=== PATIENT | female | born 1980 | race Caucasian/White ===

== ENCOUNTER 2019-07-19 15:00 | Outpatient (CLI) | payer BC, SELFPAY ==
--- NOTE | ~2019-07-19 | MM_ITS ---
EXAMINATION: MM screening jean-pierre BI w lauro HISTORY: Screening mammogram TECHNIQUE: Craniocaudal and mediolateral oblique 3-D tomosynthesis images were obtained and synthetic 2-D images were generated. CAD analysis was submitted and interpreted. COMPARISON: No prior mammogram is available for comparison at this institution. BREAST PARENCHYMAL COMPOSITION: There are scattered areas of fibroglandular density. FINDINGS: There is no evidence of suspicious mass, calcification, or architectural distortion to sugg est malignancy in either breast. There has been no suspicious interval change. IMPRESSION: 1. No mammographic evidence of malignancy. 2. Recommend routine screening mammography in one year. BI-RADS Category 1: Negative Reviewed, dictated and finalized at location A. IC PROFESSOR
== END 2019-07-19 15:01 | disposition home or self-care (01) ==
PROVIDERS: Visit Provider Surgery Plastic and Reconstructive Surgery
DX: Z12.31 Encounter for screening mammogram for malignant neoplasm of breast (principal)
CPT/HCPCS: 77063; 77067

== ENCOUNTER 2019-08-03 09:23 | Outpatient (CLI) | payer SELFPAY ==
--- NOTE | 2019-08-03 09:25 | ECG_ITS ---
Measurements Intervals [place] Rate: 60 P: 22 MA: 136 QRS: 8 QRSD: 88 T: 14 QT: 422 QTc: 422 Interpretive Statements SINUS RHYTHM NORMAL ECG Electronically Signed On 08-03-2019 10:02:44 CONSTRUCTION SKILLS TEACHER by Demarco Munoz D.O.
[2019-08-03 10:47] LABS: Hematocrit 33.7 % (37.0-47.0); Hemoglobin 10.6 g/dL (12.0-15.0)
== END 2019-08-03 09:24 | disposition home or self-care (01) ==
LOC: ANHSURGERY 09:25
PROVIDERS: Anesthesiology; Visit Provider Surgery Plastic and Reconstructive Surgery
DX: L57.4 Cutis laxa senilis (principal)
CPT/HCPCS: 36415; 85014; 85018; 93005

== ENCOUNTER 2019-08-09 01:49 | Day surgery (SDC) | payer OTHER, SELFPAY ==
[2019-07-27 10:07] VITALS: BMI 23.5
--- NOTE | 2019-08-08 11:44 | P.PNAN_ITS ---
Anes - Initial Pre Proc Eval Procedure: Operation Date: 08/09/19 10:30 Proposed Procedures p Bilateral Augmentation Mammoplasty, Bilateral Mastopexy With Galaflex - Boyd Ascencio MD s Abdominoplasty - Boyd Ascencio MD Date/Time: 08/08/19 11:44 Surgeon: Boyd Ascencio MD Pre Op Diagnosis: Skin Laxity Patient Data Age: 39 Gender: F Height: 5 ft 7 in Weight: 68.04 kg Allergies Allergy/AdvReac Type Severity Reaction Status Date / Time No Known Allergies Allergy Unverified 08/09/19 09:09 Home Medications Medication Instructions Recorded Confirmed Type carisoprodol 350 mg tablet 350 mg PO TID PRN #21 tablet 07/31/19 08/09/19 Rx docusate sodium 100 mg capsule 100 mg PO DAILY #14 cap 07/31/19 08/09/19 Rx ondansetron HCl 4 mg tablet 4 mg PO Q8H #28 tablet 07/31/19 08/09/19 Rx oxycodone-acetaminophen 5 mg-325 1 tablet PO Q6H PRN #15 tablet 07/31/19 08/09/19 Rx mg tablet Patient hx anesthesia problems: none Family hx anesthesia problems: none [facility] Past Medical History Medical History (Updated 08/08/19 @ 11:44 by Perico Waters MD) Healthy adult Social History Social History Smoking status: Former smoker Alcohol intake: current Anes - Eval Final PreProcedure Day of Procedure 08/08/19 11:44 Patient weight: normal Heart: regular rate and rhythm Lungs: clear to auscultation Airway: Mallampati scale class II Neurological: alert and oriented Last oral intake: >/= 8 hours ASA classification: II Emergent: no Anesthetic plan: proceed Anesthesia type and monitoring: general ETT and standard monitoring Informed Consent: The patient's anesthetic plan and its attendant risks and benefits were discussed with the patient/family/POA. Questions were solicited and answers provided to the satisfaction of the patient/family/POA.
[2019-08-09] VITALS (14 sets, daily range): BP systolic 114–133; BP diastolic 77–90; PULSE 52–95; RESP 12–18; TEMP 36.3–36.9; O2SAT 94–100
[2019-08-09] MEDS: LACTATED RINGERS 1,000 ML 30 ML IV CONT ×2 (09:00→16:44)
[2019-08-09 09:02] LABS: Urine Cotinine NEGATIVE
--- NOTE | 2019-08-09 11:06 | WPDHPUPDATE1 ---
History and Physical Update Update Date/Time: 08/09/19 11:06 History and Physical has been reviewed, including an updated exam of the patient. There are NO changes in the patient's condition. Risks, benefits, and alternatives have been discussed and questions answered. Patient agrees to proceed with procedure.
[2019-08-09] MEDS: ONDANSETRON INJ 4 MG/2 ML VIAL IV PUSH (11:30)
[2019-08-09] MEDS: SCOPOLAMINE 1.5 MG PATCH TRANSDERM (11:36)
[2019-08-09] MEDS: ceFAZolin 2 GM/D5W 50 ML 2 GM/50 ML BAG IVPB (11:44)
[2019-08-09] MEDS: LIDO 1%/EPINEPHRINE 1:100,000 20 ML VIAL 30 ML INFILTRATE (12:40)
--- NOTE | 2019-08-09 16:23 | SUR.OPER ---
Ebl=50ml
--- NOTE | 2019-08-09 16:30 | SUR.OPER ---
[id number]
--- NOTE | 2019-08-09 16:42 | PM.PROC ---
Procedure Note - Detailed Date of procedure: 08/09/19 Pre-op diagnosis: Skin Laxity Breast Ptosis Micromastia Post-op diagnosis: same Procedure performed: 1. Augmentation mastopexy with galaflex 2. Progressive tension abdominoplasty Description of procedure: She is here today for bilateral breast augmentation, mastopexy,galaflex, abdominoplasty. Previously and again today the risks, benefits, alternatives were discussed in extensive detail. I wanted her to be very realistic about the risks involved as well as expectations. We discussed aftercare and what to monitor for. Made sure answered all of her questions to her satisfaction today and consent was obtained. Marked in the preoperative holding area with their verification. The patient was taken to the operating room placed supine on the operating table. Anesthesia was provided by anesthesiology. A surgical time-out was taken. We cleansed the skin and 1% lidocaine and 0.25% Marcaine with epinephrine was used anesthetize as a field block. She was prepped and draped in a standard sterile fashion. Tegaderm nipple Real were placed. Incision was made vertically along the breast down to the level of the pectoralis major.. I incised the pectoralis major along its inferior border and completely released the inferior border leaving the medial border intact. I created a subpectoral pocket in the appropriate dimensions based on our preoperative planning for the implant. I then copiously irrigated with saline solution and verified a strict hemostasis. Next the use a triple antibiotic and Betadine containing solution to irrigate the pocket. I washed my gloves with the triple antibiotic and Betadine solution. We washed the implant immediately upon opening it with this solution and only opened it when we needed it. I used implant funnel and no-touch technique. The implant was introduced into the pocket using the funnel. Having verified positioning of the implant this was closed using 2-0 Vicryl. I tailor tacked the breast into place. Placed her in a sitting position. Marked out the nipple-areolar complex at 38 mm. This was based on preoperative planning, intraoperative observations as well as intraoperative measurements which were in full agreement. I placed the patient supine and I de-epithelialized a superior pedicle. I resected just the central keel portion. I elevated the flaps medial and lateral superficial to the implant leaving good tissue covering this implant. I then trimmed the galaflex and sutured into place with 2-0 Vicryl. I then reapproximated the flaps using 2-0 Vicryl along its inferior and vertical aspect. Closed the vertical as well as around the areola with 3-0 Monocryl. Close IMF with 3-0 strata fix. Then ran a running subcuticular 4-0 Monocryl. Prior to final closure I did place her in a sitting position to verify symmetry as well as appearance. I placed the patient in a flexed position to verify the upper and lower markings would reach. I then placed her supine. A thorough abdominal examination was completed. Stab incisions were made and used tumescent solution. A 10 blade was used to make the upper incision. I continued dissection down to the level of fascia. Elevated just what was necessary for repair of the diastasis and discontinuous undermining otherwise. I then again flexed the bed to verify the upper skin flap would reach the lower markings without tension. Once verified I placed her supine once again and a 10 blade used to make the lower incision. I elevated up to level the umbilicus and left the umbilicus intact on a well-vascularized stalk. The intervening tissue was removed. A 2 mm blunt cannula and Exparel which was mixed 20 cc in 100 cc for a total volume of 120 cc I injected deep to the fascia bilaterally as well as along the incision lines and laterally to the breast using a 22 gauge needle.. I plicated the diastasis recti using 0 PDO stratafix barbed suture.
--- NOTE | 2019-08-09 17:47 | SUR.PHASEI ---
1540 SPOKE WITH SPOUSE PER PHONE- UPDATE & ROOM # GIVEN.
--- NOTE | 2019-08-09 17:53 | PC.NURSE ---
Pt. transferred to second floor OB per bed. No c/o pain at this time. Alert and oriented x3.
[2019-08-09 18:06] LABS: Hepatitis B Surface Antigen Negative (Negative)
[2019-08-09] MEDS: LACTATED RINGERS 1,000 ML 125 ML IV CONT (18:07)
[2019-08-09 18:23] LABS: HIV 1/2 Ab P24 Ag Result Negative (Negative); Hepatitis C Virus Antibody Negative (Negative)
[2019-08-09] MEDS: carisoprodoL 350 MG TABLET PO (22:09)
[2019-08-09] MEDS: DOCUSATE SODIUM 100 MG CAPSULE PO (22:09)
[2019-08-09] MEDS: SIMETHICONE 80 MG TAB.CHEW (22:23)
[2019-08-10] MEDS: carisoprodoL 350 MG TABLET PO ×3 (03:56→15:03)
[2019-08-10] MEDS: SIMETHICONE 80 MG TAB.CHEW (03:56)
[2019-08-10 04:00] VITALS: BP 116/76; PULSE 61; RESP 16; TEMP 36.9
[2019-08-10 07:55] VITALS: BP 86/57; PULSE 73; RESP 16; TEMP 37.4; O2SAT 98
--- NOTE | 2019-08-10 07:59 | WPDPN ---
Progress Note: A&P Assessment and Plan (1) Skin laxity: Code(s): L57.4 - Cutis laxa senilis Status: Acute Assessment and Plan: She is doing very well. Will plan for discharge later today when: Ambulating Pain control Tolerating regular diet Today we had a more than 20 minutes conversation about the care afterwards. What monitor for. (2) Breast ptosis: Code(s): N64.81 - Ptosis of breast Status: Acute (3) Micromastia: Code(s): N64.82 - Hypoplasia of breast Status: Acute Review of Systems Review of Systems: All systems reviewed & are unremarkable except as noted in HPI and below Exam Const: General: no acute distress Eyes: General: appearance normal, both eyes and all related structures Resp: Effort & Inspection: normal respiratory effort Cardio: Rate: regular rate Skin: Other: Bilateral breasts are healing well. No signs of infection. No hematoma. No seroma. Nipple-areolar complex with good color and capillary refill. Abdomen is healing well. No signs of infection. No hematoma. No seroma. Good color and capillary refill. Extrem: Other: No calf tenderness. Negative Homans. Objective Data Vital Signs Vital Signs: Vital Signs - 24 hr 08/09/19 09:09 08/09/19 16:44 08/09/19 16:55 Temperature 36.9 C 36.3 C L Pulse Rate 73 95 58 L Respiratory Rate 18 12 12 Blood Pressure 133/90 117/86 128/87 Pulse Oximetry 100 100 100 08/09/19 17:10 08/09/19 17:25 08/09/19 17:40 Temperature Pulse Rate 55 L 55 L 55 L Respiratory Rate 12 16 16 Blood Pressure 128/87 122/85 124/82 Pulse Oximetry 100 96 94 08/09/19 17:55 08/09/19 18:15 08/09/19 18:30 Temperature 36.5 C Pulse Rate 62 52 L 58 L Respiratory Rate 18 Blood Pressure 115/82 122/80 120/86 Pulse Oximetry 97 08/09/19 19:00 08/09/19 19:30 08/09/19 20:00 Temperature Pulse Rate 62 60 63 Respiratory Rate Blood Pressure 118/78 118/79 116/77 Pulse Oximetry 08/09/19 21:00 08/09/19 23:30 08/10/19 04:00 Temperature 36.7 C 36.9 C Pulse Rate 69 67 61 Respiratory Rate 16 16 Blood Pressure 114/78 119/78 116/76 Pulse Oximetry Intake/Output Intake/Output: Intake & Output 08/07/19 08/08/19 08/09/19 08/10/19 23:59 23:59 23:59 23:59 Intake Total 300 1200 Output Total 50 400 Balance 250 800 Meds/Results Medications: Active Medications Generic Name Dose Route Start Last Admin Trade Name Freq PRN Reason Stop Dose Admin Carisoprodol 350 mg 08/09/19 18:00 08/10/19 03:56 Soma PO 350 mg Q6HR JEFFERY Administration Docusate Sodium 100 mg 08/09/19 21:00 08/09/19 22:09 Colace Capsule PO 100 mg Q12HR JEFFERY Administration Enoxaparin Sodium 40 mg 08/10/19 09:00 Lovenox SUB-Q DAILY JEFFERY Morphine Sulfate 2 mg 08/09/19 17:48 Morphine Sulfate Inj IV PUSH Q2H PRN Pain Ondansetron HCl 4 mg 08/09/19 17:48 Zofran Inj IV PUSH Q6H PRN Nausea Oxycodone/Acetaminophen 1 - 2 tablet 08/09/19 17:48 08/10/19 03:55 Percocet 5-325 Mg PO 2 tablet Q6H PRN Administration Pain Labs Labs: Laboratory Results - last 24 hr 08/09/19 08/09/19 08:47 17:17 Cotinine Negative Hep Bs Antigen Negative Hepatitis C Ab Screen Negative HIV 1&2 Ab/P24 Ag 4thGn Negative
--- NOTE | 2019-08-10 08:09 | PM.DS ---
DS: Diagnosis Admitting Diagnosis Admitting Diagnosis: Cutis laxa senilis Micromastia Breast Ptosis DS: Summary Time Spent with Patient Time attestation: Total time spent providing and/or coordinating discharge services: 20 minutes She was admitted after augmentation mastopexy and abdominoplasty. Overnight she has done very well. Will plan for discharge home later today. Exam Const: General: no acute distress Eyes: General: appearance normal, both eyes and all related structures Resp: Effort & Inspection: normal respiratory effort Cardio: Rate: regular rate Skin: Other: Bilateral breasts are healing well. No signs of infection. No hematoma. No seroma. Nipple-areolar complex with good color and capillary refill. Abdomen is healing well. No signs of infection. No hematoma. No seroma. Good color and capillary refill. Extrem: Other: No calf tenderness. Negative Homans. DS: Data Data Completed and Pending Labs on day of discharge: Labs from last 24 hours 08/09/19 08/09/19 17:17 08:47 Cotinine Negative Hep Bs Antigen Negative Hepatitis C Ab Screen Negative HIV 1&2 Ab/P24 Ag 4thGn Negative Discharge Plan Discharge Patient Disposition: Home, Self-Care Discharge Instructions: POST OPERATIVE DISCHARGE INSTRUCTIONS FOR: Breast Augmentation BOYD ASCENCIO M.D. [facility] [address] [place] [address] [address] for 24 hours after anesthesia and while you are taking pain medication. Take all prescribed medication as directed Diet as tolerated. Begin gentle shoulder rolls and arm stretches 10 times per hour. No lifting or activity that raises blood pressure for 48 hours. Regular walking / ambulation. Remove the Scopolamine patch that was placed behind your ear in 72 hours or less. Wash your hands after touching. Call with any questions or concerns. At this point my may shower. Do not take pain medication before showering as the combination of medication and heat may cause you to feel dizzy or pass out. Let soap and water run over your incisions. Do not scrub or directly wash your incision. Replace the surgical bra and wear it 23 hours per day. No pools / tubs/ soaking for more than 2 weeks Keep flexed at waist, slowly stand as tolerated. No lifting more than 20 pounds. Abdominal binder and surgical bra (or sports bra - no underwire) 23 hours per day. If you have any questions or concerns, please call the office . If it is after hours you will be directed to the propulsion motor and generator repairer exchange. Shortness of breath, chest pain, or other medical emergency dial 911 / proceed to the Emergency Room. Follow-up/Referrals: Boyd Ascencio MD [Physician] - 2 Weeks Discharge Medications: New ibuprofen 600 mg Tablet 600 mg PO Q6H 5 Days Qty: 20 RF: 0 Continued ondansetron HCl [Zofran] 4 mg tablet 4 mg PO Q8H Qty: 28 RF: 0 docusate sodium [Colace] 100 mg capsule 100 mg PO DAILY Qty: 14 RF: 0 carisoprodol [Soma] 350 mg tablet 350 mg PO TID PRN (Reason: muscle pain) Qty: 21 RF: 0 oxycodone-acetaminophen [Percocet] 5-325 mg tablet 1 tablet PO Q6H PRN (Reason: pain) Qty: 15 RF: 0 Quality VTE Prophylaxis VTE prophylaxis: mechanical ordered and pharmacologic ordered Discharge DVT prophylaxis was discussed with patient she would like proceed with ambulation as her method of choice after discharge.
--- NOTE | 2019-08-10 09:26 | WPDANESPN ---
Anes - Prog Note Post-Op Date/Time: 08/10/19 09:26 Cardiovascular status: normal Respiratory status: normal Airway patency: baseline Mental status: baseline Post-Op hydration status: normal Vital Signs: Last Vital Signs Temp 36.9 C 08/10/19 04:00 Pulse 61 08/10/19 04:00 Resp 16 08/10/19 04:00 BP 116/76 08/10/19 04:00 Pulse Ox 97 08/09/19 17:55 Pain Score (VAS): 0/10. Patient resting in bed at time of assessment, appears comfortable. I/O: Intake & Output 08/09/19 08/10/19 08/10/19 23:59 07:59 15:59 Intake Total 300 1200 Output Total 50 400 Balance 250 800 08/09/19 17:17 Hep Bs Antigen Negative Hepatitis C Ab Screen Negative HIV 1&2 Ab/P24 Ag 4thGn Negative Patient Feedback: Patient satisfied with anesthetic care.
[2019-08-10] MEDS: DOCUSATE SODIUM 100 MG CAPSULE PO (09:31)
[2019-08-10] MEDS: IBUPROFEN 600 MG TABLET PO ×2 (09:31→15:03)
[2019-08-10] MEDS: ENOXAPARIN 40 MG/0.4 ML SYRINGE SUB-Q (09:31)
== END 2019-08-10 15:25 | disposition home or self-care (01) ==
LOC: ANHSURGERY 11:37 → ANHOB2 17:54
PROVIDERS: Visit Provider Surgery Plastic and Reconstructive Surgery
PROC: (CPT 19325; principal; 2019-08-09 10:30)
PROC: (CPT 19325; 2019-08-09 10:30)
DX: Z41.1 Encounter for cosmetic surgery (principal); L57.4 Cutis laxa senilis; N64.81 Ptosis of breast; N64.82 Hypoplasia of breast; Z87.891 Personal history of nicotine dependence
CPT/HCPCS: 19325; 19316; 15777 ×2; 15830; 15847; 36415; 80307; 86703; 86803; 87340; 99199; A9270; C9290; G0432; J0131; J0171; J0690; J1100; J1170; J1580; J1650; J2250; J2405; J2704; J3010; J7120

== ENCOUNTER 2021-04-03 11:40 | Emergency (ER) | payer BC, SELFPAY ==
--- NOTE | ~2021-04-03 | XR_ITS ---
EXAMINATION: XR chest 2V EXAM DATE: 04/03/2021 12:07 INDICATION: LT Sided Cp/Axillary Chest/Lt Shoulder Pain X Yesterday . TECHNIQUE: Frontal and lateral projections of the chest obtained and reviewed. There is no prior nela dy for comparison. FINDINGS: The lungs are clear. There are no pleural effusions. The cardiomediastinal silhouette is within normal limits. There is no pneumothorax suspected. The bones and soft tissues are unremarkab le. IMPRESSION: No acute cardiopulmonary findings. Reviewed, dictated and finalized at location B.
--- NOTE | ~2021-04-03 | CT_ITS ---
EXAMINATION: CTA chest PE protocol DATE: 04/03/2021 15:26 CDT INDICATION: Left chest pain. Elevated d-dimer. TECHNIQUE: Computed tomographic angiography (CTA) of the chest was performed with 100 mL Omnipaque-35 0 intravenous contrast. The dose-length product was 285.39 mGy-cm. Maximum intensity projection 3D-re constructions of the aorta and other arteries were constructed by the technologist on a separate work station. Automated exposure control and iterative reconstruction technique were employed. COMPARISON: No prior studies for comparison. FINDINGS: Small left pleural effusion. Cardiomegaly. Study is technically adequate without evidence f or pulmonary embolism. No thoracic lymphadenopathy. There are breast implants. No endobronchial lesio ns. There is dependent atelectasis. No suspicious pulmonary nodules or masses. The upper abdomen is u nremarkable. No acute osseous abnormality. IMPRESSION: 1. No evidence for pulmonary embolism. 2: Small left pleural effusion with underlying dependent bibasilar atelectasis. 3: Cardiomegaly. Reviewed, dictated and finalized at location A.
--- NOTE | 2021-04-03 11:42 | ECG_ITS ---
Measurements Intervals [place] Rate: 90 P: 46 UT: 126 QRS: 28 QRSD: 85 T: 62 QT: 379 QTc: 466 Interpretive Statements SINUS RHYTHM INCOMPLETE RIGHT BUNDLE BRANCH BLOCK BORDERLINE ST ABNORMALITY- ANTEROLATERAL LEADS BASELINE ARTIFACT- I, II, III, AVR, AVL BORDERLINE ECG Electronically Signed On 04-03-2021 13:09:42 CDT by Demarco Munoz D.O.
[2021-04-03 11:43] VITALS: BP 183/105; PULSE 95; RESP 22; TEMP 36.3; O2SAT 100
--- NOTE | 2021-04-03 13:23 | ED.CHESTPAIN ---
HPI - Chest Pain General Chief Complaint: Chest Pain <Socorro Amado PA-C - Last Filed: 04/03/21 17:49> Stated Complaint: chest pain <Socorro Amado PA-C - Last Filed: 04/03/21 17:49> Time Seen by Provider: 04/03/21 13:21 <Socorro Amado PA-C - Last Filed: 04/03/21 17:49> Source: patient <KATHERINE Alvarado Last Filed: 04/03/21 17:49> Mode of arrival: ambulatory <KATHERINE Alvarado Last Filed: 04/03/21 17:49> Limitations: no limitations <KATHERINE Alvarado Last Filed: 04/03/21 17:49> History of Present Illness HPI narrative: This is a 40 year old female that presents to the ER for chest pain present since yesterday. Reports the pain is a constant ache. It radiates into the left arm. More sharp in nature with deep breathing and some movement. Reports she has also had some lightheadedness with standing as well. Does report an injury to the left shoulder a couple weeks ago. Reports she did stop taking her Sertraline a couple of days ago. Denies fever, cough, shortness of breath, or lower extremity edema. <Socorro Amado PA-C - Last Filed: 04/03/21 17:49> Related Data Allergies/Adverse Reactions: Allergies Allergy/AdvReac Type Severity Reaction Status Date / Time No Known Allergies Allergy Unverified 08/09/19 09:09 <Socorro Amado PA-C - Last Filed: 04/03/21 17:49> Review of Systems Review of Systems: CONSTITUTIONAL: Denies fever CARDIOVASCULAR: Reports chest pain. Denies edema. RESPIRATORY: Denies cough or dyspnea. <KATHERINE Alvarado Last Filed: 04/03/21 17:49> All systems reviewed & are unremarkable except as noted in HPI and below <KATHERINE Alvarado Last Filed: 04/03/21 17:49> PMFSH Past Medical History Medical History: Medical History (Updated 04/03/21 @ 17:49 by Socorro Amado PA-C) History of depression <Socorro Amado PA-C - Last Filed: 04/03/21 17:49> Social History Social History: Social History (Updated 04/03/21 @ 13:46 by Socorro Amado PA-C) Smoking status: Current every day smoker Alcohol intake: current <Socoror Amado PA-C - Last Filed: 04/03/21 17:49> Exam Narrative: GENERAL: Well-appearing, well-nourished, and in no acute distress. HEAD: Normocephalic, atraumatic. EYES: EOMI. CHEST: Clear to auscultation. No respiratory distress. No wheezes rales or rhonchi HEART: Regular rate and rhythm. No murmur heard. Normal peripheral pulses. EXTREMITIES: Normal range of motion. No edema or obvious deformity. Pain is reproducible with active range of motion in the left shoulder SKIN: Warm, dry, no rash. NEURO: No focal deficits. Alert and oriented x3. PSYCH: Normal mood and affect <Socorro Amado PA-C - Last Filed: 04/03/21 17:49> Course WAITER/WAITRESS THIRD CLASS/PA Physician Supervision I did not see this patient nor was the care plan discussed with me. I was available for evaluation and consultation, I agree with the documentation as above <Roshan Parks MD - Last Filed: 04/03/21 18:18> Consultations Consultation #1: Spoke with Dr. Roy about patient and workup who will follow up in clinic. Would like referral to cardiology as well <Socorro Amado PA-C - Last Filed: 04/03/21 17:49> Date: 04/03/21 <Socorro Amado PA-C - Last Filed: 04/03/21 17:49> Time: 17:45 <Socorro Amado PA-C - Last Filed: 04/03/21 17:49> Vital Signs Vital signs: Vital Signs Temperature 36.3 C L 04/03/21 11:43 Pulse Rate 95 04/03/21 11:43 Respiratory Rate 22 H 04/03/21 11:43 Blood Pressure 183/105 H 04/03/21 11:43 Pulse Oximetry 100 04/03/21 11:43 Temperature 36.3 C L 04/03/21 11:43 Pulse Rate 77 04/03/21 17:56 Respiratory Rate 16 04/03/21 17:56 Blood Pressure 141/105 H 04/03/21 17:56 Pulse Oximetry 100 04/03/21 17:56 <Socorro Amado PA-C - Last Filed: 04/03/21 17:49> Vital Signs Temperature 36.3 C L 04/03/21 11:43 Pulse Rate 95 04/03/21 11:4
[2021-04-03 13:43] LABS: Basophils Absolute Auto 0.1 K/mm3 (0.0-0.1); Basophils Percent Auto 0.8 % (0.2-1.2); Eosinophils Absolute Auto 0.2 K/mm3 (0-0.3); Eosinophils Percent Auto 2.8 % (0-4.4); Hematocrit 37.7 % (37.0-47.0); Immature Granulocyte Absolute 0.03 K/mm3 (0.00-0.031); Immature Granulocyte Percent A 0.4 % (0-0.5); Lymphocytes Absolute Auto 1.63 K/mm3 (0.9-3.2); Mean Corpuscular HGB Conc 31.8 g/dl (32-36); Mean Corpuscular Hemoglobin 26.8 pg (26-34); Mean Corpuscular Volume 84.2 fl (80-100); Mean Platelet Volume 10.2 fl (7.4-10.4); Monocytes Absolute Auto 0.7 K/mm3 (0.1-0.6); Monocytes Percent Auto 9.7 % (2.6-8.5); Neutrophils Absolute Auto 4.8 K/mm3 (1.3-6.7); Neutrophils Percent Auto 64.3 % (45.5-73.1); Platelet Count Result 293 k/mm3 (150-375); Red Blood Count 4.48 M/mm3 (4.2-5.4); Red Cell Distribution Width 18.1 % (11.5-14.5); White Blood Count 7.4 K/mm3 (4.5-10.0)
[2021-04-03 14:10] LABS: Anion Gap 11 mmol/L (8-16); Blood Urea Nitrogen 9 mg/dL (7-17); Calcium 9.6 mg/dL (8.4-10.2); Carbon Dioxide 26 mmol/L (22-30); Chloride 102 mmol/L (98-107); Estimated CRCL calculation 101 ml/min; Estimated Glomerular Filt Rate > 60; Glucose 92 mg/dL (65-110); Potassium 3.9 mmol/L (3.4-5.0); Sodium 139 mmol/L (137-145)
[2021-04-03 14:12] VITALS: BP 147/110; PULSE 80; RESP 20; O2SAT 100
[2021-04-03] MEDS: SODIUM CHLORIDE 0.9% IV 1,000 ML 999 ML IV CONT (14:17)
[2021-04-03] MEDS: ASPIRIN 81 MG CHEWABLE TABLET 324 MG PO (14:17)
[2021-04-03] MEDS: ACETAMINOPHEN 500 MG TABLET 1000 MG PO (14:17)
[2021-04-03] MEDS: diazePAM INJ (*CRX) 10 MG/2 ML SYRINGE 5 MG IV PUSH (14:18)
--- NOTE | 2021-04-03 14:20 | PC.NURSE ---
Unable to complete orthostatic vs at this time due to pain, PA notified.
[2021-04-03 14:21] LABS: Troponin I < 0.012 ng/mL (0.000-0.034)
[2021-04-03 14:49] LABS: Prothrombin Time 13.1 Seconds (11.1-14.7)
[2021-04-03 14:50] LABS: Partial Thromboplastin Time 27.9 SECONDS (22.3-36.8)
[2021-04-03 14:51] LABS: D Dimer 0.51 ug/mL (<0.48)
[2021-04-03 16:17] LABS: NT Pro B Type Natriuretic Pept 84 pg/mL (5-100)
[2021-04-03 16:53] LABS: Troponin I < 0.012 ng/mL (0.000-0.034)
[2021-04-03] MEDS: traMADol HCL (*CRX) 50 MG TABLET PO (17:00)
[2021-04-03 17:01] VITALS: BP 125/95; PULSE 80
[2021-04-03 17:02] VITALS: BP 136/93; PULSE 88
[2021-04-03 17:56] VITALS: BP 141/105; PULSE 77; RESP 16; O2SAT 100
== END 2021-04-03 17:57 | disposition home or self-care (01) ==
PROVIDERS: Physician Assistant; Emergency Provider Emergency Medicine
DX: J90 Pleural effusion, not elsewhere classified (principal); F32.A Depression, unspecified; F17.200 Nicotine dependence, unspecified, uncomplicated; I51.7 Cardiomegaly; I45.10 Unspecified right bundle-branch block; R94.31 Abnormal electrocardiogram [ECG] [EKG]
CPT/HCPCS: 36415; 71046; 71275; 80048; 83880; 84484; 85025; 85380; 85610; 85730; 93005; 96361; 96374; 99284; A9270; J3360; J7030; Q9967

== ENCOUNTER 2021-04-23 16:25 | Outpatient (CLI) | payer BC, SELFPAY ==
--- NOTE | ~2021-04-23 | XR_ITS ---
EXAMINATION: XR chest 2V DATE: 04/23/2021 16:52 INDICATION: Left lung pneumonia TECHNIQUE: PA and lateral views of the chest were obtained. COMPARISON: Chest radiograph and CT dated 04/03/2021 FINDINGS: The lungs are clear with no focal airspace opacities, pulmonary edema, pleural effusion or pneumothor ax. The cardiomediastinal silhouette is normal. Bilateral breast implants. Mild thoracic spondylosis. IMPRESSION: 1. No acute cardiopulmonary disease. Reviewed, dictated and finalized at location A. METER READER
--- NOTE | ~2021-04-23 | XR_ITS ---
EXAMINATION: XR shoulder LT min 2V DATE: 04/23/2021 16:53 INDICATION: Generalized left shoulder pain one month after being hit by a door TECHNIQUE: AP internally and externally rotated, AP oblique externally rotated and axillary views of the left shoulder were obtained. COMPARISON: None FINDINGS: Normal alignment. No fracture. Glenohumeral joint is normal. Acromioclavicular joint is normal. Soft tissues are unremarkable. Visualized portion of the lungs are clear. IMPRESSION: Negative left shoulder radiographs. Reviewed, dictated and finalized at location A. [employer] ARCHITECT
== END 2021-04-23 16:26 | disposition home or self-care (01) ==
PROVIDERS: PCP Emergency Medicine; Visit Provider Emergency Medicine
DX: J18.9 Pneumonia, unspecified organism (principal)
CPT/HCPCS: 71046; 73030

== ENCOUNTER 2021-04-28 08:11 | Outpatient (CLI) | payer BC, SELFPAY ==
--- NOTE | ~2021-04-28 | MM_ITS ---
EXAMINATION: MM scrn jean-pierre implant BI w lauro HISTORY: Screening mammogram TECHNIQUE: Craniocaudal and mediolateral oblique 3-D tomosynthesis images with implant displacement a nd synthetic 2-D images were generated. Craniocaudal and mediolateral oblique views of the breasts wi thout implant displacement were obtained using full field digital mammography. CAD analysis was submi tted and interpreted. COMPARISON: 07/19/2019 BREAST PARENCHYMAL COMPOSITION: The breasts are heterogeneously dense, which may obscure small masses . FINDINGS: There are changes of interval breast augmentation. There is no evidence of suspicious mass, calcification, or architectural distortion to suggest malignancy in either breast. There has been no suspicious change. IMPRESSION: 1. No mammographic evidence of malignancy. 2. Recommend routine screening mammography in one year. BI-RADS Category 1: Negative Reviewed, dictated and finalized at location A. CIATE CURATOR
== END 2021-04-28 08:12 | disposition home or self-care (01) ==
LOC: ANHIMG 08:15
PROVIDERS: PCP Emergency Medicine; Visit Provider Emergency Medicine
DX: Z12.31 Encounter for screening mammogram for malignant neoplasm of breast (principal)
CPT/HCPCS: 77063; 77067

== ENCOUNTER 2023-04-29 11:23 | Outpatient (CLI) | payer OTHER, SELFPAY ==
--- NOTE | ~2023-04-29 | MM_ITS ---
EXAMINATION: MM scrn jean-pierre implant BI w lauro HISTORY: Screening mammogram TECHNIQUE: Craniocaudal and mediolateral oblique 3-D tomosynthesis images with implant displacement a nd synthetic 2-D images were generated. Craniocaudal and mediolateral oblique views of the breasts wi thout implant displacement were obtained using full field digital mammography. CAD analysis was submi tted and interpreted. COMPARISON: 04/28/2021, bilateral implant screening mammogram examinations BREAST PARENCHYMAL COMPOSITION: The breasts are heterogeneously dense, which may obscure small masses . FINDINGS: Status post bilateral augmentation mammoplasty. Stable approximately 8 mm circumscribed [place] is noted in the upper outer right breast since July 19, 2019. There is no evidence of suspic ious mass, calcification, or architectural distortion to suggest malignancy in either breast. There h as been no suspicious interval change. IMPRESSION: 1. Benign finding. No mammographic evidence of malignancy. 2. Recommend routine screening mammography in one year. BI-RADS Category 2: Benign finding(s). Reviewed, dictated and finalized at location A. [employer]
== END 2023-04-29 11:24 | disposition home or self-care (01) ==
LOC: ANHIMG 11:39
PROVIDERS: PCP Internal Medicine; Visit Provider Internal Medicine
DX: Z12.31 Encounter for screening mammogram for malignant neoplasm of breast (principal)
CPT/HCPCS: 77063; 77067